=== PATIENT | female | born 1985 | race Caucasian/White ===

== ENCOUNTER 2016-11-29 19:23 | Emergency (ER) | payer MEDICAID, OTHER ==
[2016-11-29 19:24] VITALS: BMI 35.4
[2016-11-29 20:12] VITALS: RESP 14; TEMP 97.5; O2SAT 98
--- NOTE | 2016-11-29 20:22 | C.PDOC ---
- HPI Time Seen by Provider: 11/29/16 20:22 Chief Complaint (Nursing): Trauma Past Medical History Vital Signs: Last Vital Signs Temp 97.5 F L 11/29/16 20:04 Pulse 70 11/29/16 20:04 Resp 14 11/29/16 20:04 BP 110/54 L 11/29/16 20:04 Pulse Ox 98 11/29/16 20:04 - Medical History PMH: Anemia Surgical History: Appendectomy, Carotid Endarterectomy - [facility] Procedures ASPIRAT CURET-POST DELIV (05/14/14) PACKED CELL TRANSFUSION (05/14/14) TETANUS TOXOID ADMINIST (04/05/13) Family History: States: Unknown Family Hx - Social History Hx Tobacco Use: No Hx Alcohol Use: No Hx Substance Use: No - Immunization History Hx Tetanus Toxoid Vaccination: Yes (04/05/13) Hx Influenza Vaccination: Yes (07/2014) Hx Pneumococcal Vaccination: No ED Course And Treatment O2 Sat by Pulse Oximetry: 98 Disposition Counseled Patient/Family Regarding: Studies Performed, Diagnosis - Disposition Disposition Time: 20:22
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
[2016-11-29 21:09] LABS: RBC URINE 1 /hpf (0-3); URINE BACTERIA OCC (<OCC); URINE BILIRUBIN NEGATIVE (NEGATIVE); URINE BLOOD TRACE (NEGATIVE); URINE COLOR Yellow (YELLOW); URINE GLUCOSE (UA) NORMAL (Normal); URINE KETONE NEGATIVE (NEGATIVE); URINE LEUKOCYTE ESTERASE NEG Leu/uL (Negative); URINE PROTEIN NEGATIVE (NEGATIVE); URINE UROBILINOGEN NORMAL mg/dL (0.2-1.0); WBC URINE 5 /hpf (0-5)
[2016-11-29 23:02] VITALS: BP 120/80; PULSE 80
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
--- NOTE | 2016-12-14 14:41 | CARD ---
APPROVED REPORT EKG Measurement Heart [id number] <Conclusion> Normal sinus rhythm Normal ECG
== END 2016-11-29 23:02 | disposition home or self-care (01) ==
LOC: C.ER 19:23
DX: S16.1XXA Strain of muscle, fascia and tendon at neck level, initial encounter (principal); V43.52XA Car driver injured in collision with other type car in traffic accident, initial encounter; Y92.410 Unspecified street and highway as the place of occurrence of the external cause